=== PATIENT | male | born 1935 | race Caucasian/White ===

== ENCOUNTER 2019-03-07 14:41 | Inpatient (IN) | payer MEDICARE, OTHER, MEDICAID ==
[2019-03-07] MEDS: ASPIRIN 81 MG TAB PO (15:16)
[2019-03-07] MEDS: SODIUM CHLORIDE 0.9% 1L BAG IV* (15:17)
[2019-03-07 15:27] LABS: ADD MAN DIFF? NO
[2019-03-07 15:33] LABS: WHITE BLOOD COUNT 8.7 10^3/ul (4.8-10.8)
[2019-03-07 15:33] LABS: BASOPHILS % 0.5 % (0.0-2.0); EOSINOPHILS # 0.6 10^3/ul (0.0-0.5); EOSINOPHILS % 6.9 % (0.0-7.0); HEMATOCRIT 30.9 % (42.0-52.0); HEMOGLOBIN 9.8 g/dl (14.0-18.0); LYMPHOCYTES # 1.6 10^3/ul (0.8-2.9); LYMPHOCYTES % 18.1 % (15.0-51.0); MEAN CORPUSCULAR HEMOGLOBIN 27.2 pg (29.0-33.0); MEAN CORPUSCULAR HGB CONC 31.7 g/dl (32.0-37.0); MEAN CORPUSCULAR VOLUME 85.8 fl (82.0-101.0); MEAN PLATELET VOLUME 9.9 fl (7.4-10.4); MONOCYTE # 1.1 10^3/ul (0.3-0.9); MONOCYTES % 12.3 % (0.0-11.0); NEUTROPHIL # 5.4 10^3/ul (1.6-7.5); NEUTROPHILS % 61.7 % (39.0-77.0); PLATELET COUNT 207 10^3/UL (140-415); RED CELL DISTRIBUTION WIDTH 14.5 % (11.5-14.5)
[2019-03-07 15:51] LABS: INR 0.97
[2019-03-07 15:52] LABS: PARTIAL THROMBOPLASTIN TIME 34.7 Sec (23.0-35.0)
[2019-03-07 15:58] LABS: ALANINE AMINOTRANSFERASE 16 IU/L (13-69); ALBUMIN 3.4 g/dl (3.3-4.9); ALBUMIN/GLOBULIN RATIO 1.13; ALKALINE PHOSPHATASE 63 IU/L (42-121); ANION GAP 9 (5-13); ASPARTATE AMINO TRANSFERASE 15 IU/L (15-46); BILIRUBIN,INDIRECT 0.2 mg/dl (0-1.1); BILIRUBIN,TOTAL 0.2 mg/dl (0.2-1.3); BLOOD UREA NITROGEN 38 mg/dl (7-20); CALCIUM 9.1 mg/dl (8.4-10.2); CARBON DIOXIDE 23 mmol/L (21-31); CHLORIDE 107 mmol/L (97-110); CREATININE 2.36 mg/dl (0.61-1.24); GLUCOSE 99 mg/dl (70-220); POTASSIUM 4.6 mmol/L (3.5-5.1); SODIUM 139 mmol/L (135-144); TOTAL PROTEIN 6.4 g/dl (6.1-8.1)
[2019-03-07] MEDS: CEFTRIAXONE 1 GM/50 ML (PMX) 50 ML IVPB (16:07)
[2019-03-07 16:08] LABS: TROPONIN-I < 0.012 ng/ml (0.000-0.120)
[2019-03-07] MEDS: ACETAMINOPHEN 325 MG TAB PO (16:24)
[2019-03-07] MEDS: AZITHROMYCIN 500MG/NS (PMX) 250 ML IVPB (16:30)
[2019-03-07] MEDS ORDERED: ONDANSETRON 4 MG INJ IV (16:30)
[2019-03-07] MEDS ORDERED: ACETAMINOPHEN 650 MG SUPP PR (17:30)
[2019-03-07] MEDS ORDERED: NACL 0.9% 3 ML SYG IV (17:30)
[2019-03-07] MEDS ORDERED: BISACODYL (EC) 5 MG TAB PO (17:30)
[2019-03-07] MEDS ORDERED: ACETAMINOPHEN 325 MG TAB PO (17:30)
[2019-03-07] MEDS: SOD CHLORIDE 0.9% 1,000 ML IV (19:04)
[2019-03-07 20:33] LABS: LACTIC ACID 0.6 mmol/L (0.5-2.0)
[2019-03-07 22:11] LABS: CREATINE KINASE 25 IU/L (23-200)
[2019-03-07 22:24] LABS: CK INDEX 2.2; CK-MB 0.54 ng/ml (0.0-2.4); TROPONIN-I < 0.012 ng/ml (0.000-0.120)
[2019-03-08] MEDS ORDERED: GUAIFENESIN/DM 5ML CUP PO (00:30)
[2019-03-08] MEDS: SOD CHLORIDE 0.9% 500 ML IV (00:30)
[2019-03-08] MEDS: SOD CHLORIDE 0.9% 1,000 ML IV ×5 (01:19→18:05)
[2019-03-08 03:52] LABS: CREATINE KINASE 30 IU/L (23-200)
[2019-03-08 04:04] LABS: CK INDEX 2.6; CK-MB 0.79 ng/ml (0.0-2.4); TROPONIN-I 0.018 ng/ml (0.000-0.120)
[2019-03-08] MEDS: ACETAMINOPHEN 325 MG TAB PO (05:17)
[2019-03-08 05:56] LABS: ADD MAN DIFF? NO
[2019-03-08 06:04] LABS: WHITE BLOOD COUNT 8.6 10^3/ul (4.8-10.8)
[2019-03-08 06:04] LABS: BASOPHIL # 0.1 10^3/ul (0.0-0.1); BASOPHILS % 0.7 % (0.0-2.0); EOSINOPHILS # 0.6 10^3/ul (0.0-0.5); EOSINOPHILS % 7.5 % (0.0-7.0); HEMATOCRIT 29.7 % (42.0-52.0); HEMOGLOBIN 9.4 g/dl (14.0-18.0); LYMPHOCYTES # 1.4 10^3/ul (0.8-2.9); MEAN CORPUSCULAR HEMOGLOBIN 27.2 pg (29.0-33.0); MEAN CORPUSCULAR HGB CONC 31.6 g/dl (32.0-37.0); MEAN CORPUSCULAR VOLUME 85.8 fl (82.0-101.0); MEAN PLATELET VOLUME 10.2 fl (7.4-10.4); MONOCYTES % 11.4 % (0.0-11.0); NEUTROPHIL # 5.5 10^3/ul (1.6-7.5); NEUTROPHILS % 63.9 % (39.0-77.0); PLATELET COUNT 185 10^3/UL (140-415); RED BLOOD COUNT 3.46 10^6/ul (4.70-6.10); RED CELL DISTRIBUTION WIDTH 14.6 % (11.5-14.5)
[2019-03-08 06:34] LABS: HEMOGLOBIN A1C 6.2 % (0-5.9)
[2019-03-08 06:36] LABS: TROPONIN-I 0.018 ng/ml (0.000-0.120)
[2019-03-08 06:44] LABS: ALANINE AMINOTRANSFERASE 14 IU/L (13-69); ALBUMIN 2.8 g/dl (3.3-4.9); ALBUMIN/GLOBULIN RATIO 1.07; ALKALINE PHOSPHATASE 56 IU/L (42-121); ANION GAP 4 (5-13); ASPARTATE AMINO TRANSFERASE 13 IU/L (15-46); BILIRUBIN,INDIRECT 0.6 mg/dl (0-1.1); BILIRUBIN,TOTAL 0.6 mg/dl (0.2-1.3); BLOOD UREA NITROGEN 27 mg/dl (7-20); CALCIUM 8.1 mg/dl (8.4-10.2); CARBON DIOXIDE 20 mmol/L (21-31); CHLORIDE 116 mmol/L (97-110); CREATININE 1.52 mg/dl (0.61-1.24); GLUCOSE 93 mg/dl (70-220); MAGNESIUM 1.7 mg/dl (1.7-2.5); PHOSPHORUS 2.9 mg/dl (2.5-4.9); POTASSIUM 4.6 mmol/L (3.5-5.1); SODIUM 140 mmol/L (135-144); TOTAL PROTEIN 5.4 g/dl (6.1-8.1)
[2019-03-08] MEDS: ASPIRIN (EC) 81 MG TAB PO (08:09)
[2019-03-08] MEDS: AZITHROMYCIN 500 MG TAB PO (08:09)
[2019-03-08] MEDS: ENOXAPARIN 30 MG/0.3 ML SYG SC (08:13)
[2019-03-08 10:47] LABS: ADD UMIC NO; UR ASCORBIC ACID NEGATIVE (NEGATIVE); UR BILIRUBIN (Dip) NEGATIVE (NEGATIVE); UR BLOOD (Dip) NEGATIVE (NEGATIVE); UR CLARITY CLEAR (CLEAR); UR COLOR STRAW (YELLOW); UR GLUCOSE (Dip) NEGATIVE (NEGATIVE); UR KETONES (Dip) NEGATIVE (NEGATIVE); UR LEUKOCYTE ESTERASE (Dip) NEGATIVE Leu/ul (NEGATIVE); UR NITRITE (Dip) NEGATIVE (NEGATIVE); UR TOTAL PROTEIN (Dip) NEGATIVE (NEGATIVE); UR UROBILINOGEN (Dip) NEGATIVE (NEGATIVE)
[2019-03-08] MEDS: HYDROCODONE/APAP (5/325) TAB PO (12:24)
[2019-03-08] MEDS: CEFTRIAXONE 1 GM/50 ML (PMX) 50 ML IVPB (15:17)
[2019-03-08 17:09] LABS: ERYTHROCYTE SEDIMENTATION RATE 10 mm/Hr (0-20)
[2019-03-09] MEDS: morphine 2 MG INJ IV ×3 (00:16→20:08)
[2019-03-09] MEDS: SOD CHLORIDE 0.9% 1,000 ML IV ×3 (00:29→11:52)
[2019-03-09] MEDS: NITROGLYCERIN (SL) 0.4 MG TAB SL (00:31)
[2019-03-09 02:51] LABS: TROPONIN-I 0.071 ng/ml (0.000-0.120)
[2019-03-09 06:41] LABS: ADD MAN DIFF? NO
[2019-03-09 06:48] LABS: WHITE BLOOD COUNT 8.4 10^3/ul (4.8-10.8)
[2019-03-09 06:48] LABS: BASOPHIL # 0.1 10^3/ul (0.0-0.1); BASOPHILS % 0.6 % (0.0-2.0); EOSINOPHILS # 0.8 10^3/ul (0.0-0.5); EOSINOPHILS % 9.7 % (0.0-7.0); HEMATOCRIT 31.3 % (42.0-52.0); LYMPHOCYTES # 1.5 10^3/ul (0.8-2.9); MEAN CORPUSCULAR HEMOGLOBIN 27.9 pg (29.0-33.0); MEAN CORPUSCULAR HGB CONC 31.9 g/dl (32.0-37.0); MEAN CORPUSCULAR VOLUME 87.2 fl (82.0-101.0); MEAN PLATELET VOLUME 10.1 fl (7.4-10.4); MONOCYTE # 0.9 10^3/ul (0.3-0.9); MONOCYTES % 10.1 % (0.0-11.0); NEUTROPHIL # 5.2 10^3/ul (1.6-7.5); NEUTROPHILS % 61.4 % (39.0-77.0); PLATELET COUNT 194 10^3/UL (140-415); RED BLOOD COUNT 3.59 10^6/ul (4.70-6.10); RED CELL DISTRIBUTION WIDTH 14.4 % (11.5-14.5)
[2019-03-09 07:17] LABS: ALANINE AMINOTRANSFERASE 16 IU/L (13-69); ALBUMIN 2.8 g/dl (3.3-4.9); ALBUMIN/GLOBULIN RATIO 0.93; ALKALINE PHOSPHATASE 64 IU/L (42-121); ANION GAP 5 (5-13); ASPARTATE AMINO TRANSFERASE 16 IU/L (15-46); BILIRUBIN,INDIRECT 0.2 mg/dl (0-1.1); BILIRUBIN,TOTAL 0.2 mg/dl (0.2-1.3); BLOOD UREA NITROGEN 19 mg/dl (7-20); CALCIUM 8.7 mg/dl (8.4-10.2); CARBON DIOXIDE 21 mmol/L (21-31); CHLORIDE 116 mmol/L (97-110); CREATININE 1.19 mg/dl (0.61-1.24); GLUCOSE 110 mg/dl (70-220); SODIUM 142 mmol/L (135-144); TOTAL PROTEIN 5.8 g/dl (6.1-8.1)
[2019-03-09] MEDS: ASPIRIN (EC) 81 MG TAB PO (08:06)
[2019-03-09] MEDS: AZITHROMYCIN 500 MG TAB PO (08:06)
[2019-03-09] MEDS: ENOXAPARIN 30 MG/0.3 ML SYG SC (08:07)
[2019-03-09 10:08] LABS: TROPONIN-I 0.082 ng/ml (0.000-0.120)
[2019-03-09] MEDS ORDERED: BISACODYL 10 MG SUPP PR (15:00)
[2019-03-09] MEDS: CEFTRIAXONE 1 GM/50 ML (PMX) 50 ML IVPB (15:15)
[2019-03-09] MEDS: POLYETHYLENE GLYCOL 17 GM PACKET PO ×2 (15:43→20:58)
[2019-03-09] MEDS: SENNA/DOCUSATE NA (8.6MG/50MG) TAB PO (15:43)
[2019-03-09 16:58] LABS: TROPONIN-I 0.053 ng/ml (0.000-0.120)
[2019-03-09] MEDS: NAPROXEN 250 MG TAB PO (20:57)
[2019-03-10] MEDS: DOCUSATE SODIUM 100 MG CAP PO ×2 (04:10→08:00)
[2019-03-10] MEDS: PANTOPRAZOLE (EC) 40 MG TAB PO (05:36)
[2019-03-10 06:09] LABS: ADD MAN DIFF? NO
[2019-03-10 06:18] LABS: WHITE BLOOD COUNT 7.5 10^3/ul (4.8-10.8)
[2019-03-10 06:18] LABS: BASOPHILS % 0.5 % (0.0-2.0); EOSINOPHILS # 0.8 10^3/ul (0.0-0.5); EOSINOPHILS % 10.4 % (0.0-7.0); HEMATOCRIT 30.7 % (42.0-52.0); HEMOGLOBIN 9.6 g/dl (14.0-18.0); LYMPHOCYTES # 1.5 10^3/ul (0.8-2.9); MEAN CORPUSCULAR HGB CONC 31.3 g/dl (32.0-37.0); MEAN CORPUSCULAR VOLUME 86.5 fl (82.0-101.0); MEAN PLATELET VOLUME 10.2 fl (7.4-10.4); MONOCYTES % 13.1 % (0.0-11.0); NEUTROPHIL # 4.2 10^3/ul (1.6-7.5); NEUTROPHILS % 55.7 % (39.0-77.0); PLATELET COUNT 191 10^3/UL (140-415); RED BLOOD COUNT 3.55 10^6/ul (4.70-6.10); RED CELL DISTRIBUTION WIDTH 14.7 % (11.5-14.5)
[2019-03-10 06:47] LABS: ANION GAP 6 (5-13); BLOOD UREA NITROGEN 15 mg/dl (7-20); CALCIUM 8.4 mg/dl (8.4-10.2); CARBON DIOXIDE 22 mmol/L (21-31); CHLORIDE 114 mmol/L (97-110); CREATININE 1.08 mg/dl (0.61-1.24); GLUCOSE 104 mg/dl (70-220); POTASSIUM 4.9 mmol/L (3.5-5.1); SODIUM 142 mmol/L (135-144)
[2019-03-10 06:48] LABS: LIPASE 57 U/L (23-300)
[2019-03-10 06:48] LABS: MAGNESIUM 1.8 mg/dl (1.7-2.5)
[2019-03-10 06:50] LABS: TROPONIN-I 0.101 ng/ml (0.000-0.120)
[2019-03-10] MEDS: ASPIRIN (EC) 81 MG TAB PO (08:00)
[2019-03-10] MEDS: AZITHROMYCIN 500 MG TAB PO (08:00)
[2019-03-10] MEDS: BISACODYL (EC) 5 MG TAB PO (08:00)
[2019-03-10] MEDS: NAPROXEN 250 MG TAB PO ×2 (08:00→20:51)
[2019-03-10] MEDS: SENNA/DOCUSATE NA (8.6MG/50MG) TAB PO (08:01)
[2019-03-10] MEDS: POLYETHYLENE GLYCOL 17 GM PACKET PO ×2 (08:01→20:51)
[2019-03-10] MEDS: ENOXAPARIN 30 MG/0.3 ML SYG SC (08:02)
[2019-03-10] MEDS: SOD CHLORIDE 0.9% 1,000 ML IV (08:04)
[2019-03-10] MEDS: morphine 2 MG INJ IV ×2 (08:09→21:57)
[2019-03-10 10:48] LABS: TROPONIN-I 0.078 ng/ml (0.000-0.120)
[2019-03-10] MEDS: CEFTRIAXONE 1 GM/50 ML (PMX) 50 ML IVPB (16:13)
[2019-03-10] MEDS ORDERED: LACTULOSE 30ML CUP PO (16:30)
[2019-03-11] MEDS: morphine 2 MG INJ IV (03:18)
[2019-03-11] MEDS: PANTOPRAZOLE (EC) 40 MG TAB PO (06:05)
[2019-03-11 06:23] LABS: ADD MAN DIFF? NO
[2019-03-11 06:33] LABS: WHITE BLOOD COUNT 7.2 10^3/ul (4.8-10.8)
[2019-03-11 06:33] LABS: BASOPHIL # 0.1 10^3/ul (0.0-0.1); BASOPHILS % 0.7 % (0.0-2.0); EOSINOPHILS # 0.9 10^3/ul (0.0-0.5); EOSINOPHILS % 12.2 % (0.0-7.0); HEMATOCRIT 30.9 % (42.0-52.0); HEMOGLOBIN 9.7 g/dl (14.0-18.0); LYMPHOCYTES # 1.7 10^3/ul (0.8-2.9); MEAN CORPUSCULAR HEMOGLOBIN 27.6 pg (29.0-33.0); MEAN CORPUSCULAR HGB CONC 31.4 g/dl (32.0-37.0); MEAN CORPUSCULAR VOLUME 87.8 fl (82.0-101.0); MEAN PLATELET VOLUME 9.9 fl (7.4-10.4); MONOCYTE # 0.9 10^3/ul (0.3-0.9); NEUTROPHIL # 3.7 10^3/ul (1.6-7.5); NEUTROPHILS % 50.8 % (39.0-77.0); PLATELET COUNT 193 10^3/UL (140-415); RED BLOOD COUNT 3.52 10^6/ul (4.70-6.10); RED CELL DISTRIBUTION WIDTH 14.7 % (11.5-14.5)
[2019-03-11 07:13] LABS: ALANINE AMINOTRANSFERASE 16 IU/L (13-69); ALBUMIN 2.7 g/dl (3.3-4.9); ALKALINE PHOSPHATASE 60 IU/L (42-121); ANION GAP 4 (5-13); ASPARTATE AMINO TRANSFERASE 16 IU/L (15-46); BILIRUBIN,INDIRECT 0.2 mg/dl (0-1.1); BILIRUBIN,TOTAL 0.2 mg/dl (0.2-1.3); BLOOD UREA NITROGEN 14 mg/dl (7-20); CALCIUM 8.8 mg/dl (8.4-10.2); CARBON DIOXIDE 24 mmol/L (21-31); CHLORIDE 114 mmol/L (97-110); CREATININE 1.15 mg/dl (0.61-1.24); GLUCOSE 98 mg/dl (70-220); SODIUM 142 mmol/L (135-144); TOTAL PROTEIN 5.4 g/dl (6.1-8.1)
[2019-03-11] MEDS: NAPROXEN 250 MG TAB PO ×2 (08:02→20:12)
[2019-03-11] MEDS: POLYETHYLENE GLYCOL 17 GM PACKET PO ×2 (08:02→20:12)
[2019-03-11] MEDS: ENOXAPARIN 30 MG/0.3 ML SYG SC (08:02)
[2019-03-11] MEDS: ASPIRIN (EC) 81 MG TAB PO (08:03)
[2019-03-11] MEDS: DOCUSATE SODIUM 100 MG CAP PO (08:03)
[2019-03-11] MEDS: SENNA/DOCUSATE NA (8.6MG/50MG) TAB PO (08:03)
[2019-03-11] MEDS: AZITHROMYCIN 500 MG TAB PO (08:03)
[2019-03-11 12:56] LABS: PROCALCITONIN <0.10 ng/mL (<0.10)
[2019-03-11] MEDS ORDERED: GUAIFENESIN/DM 5ML CUP PO (17:30)
[2019-03-11] MEDS: LIDOCAINE/MYLANTA 40 ML BTL PO ×3 (21:00→21:10)
[2019-03-11] MEDS: BARIUM SULF 2% 450 ML BTL (BERRY SMOOTHIE) PO ×2 (22:33→23:19)
[2019-03-12] MEDS: PANTOPRAZOLE (EC) 40 MG TAB PO (06:02)
[2019-03-12 06:27] LABS: ADD MAN DIFF? NO
[2019-03-12 06:34] LABS: WHITE BLOOD COUNT 7.5 10^3/ul (4.8-10.8)
[2019-03-12 06:34] LABS: BASOPHIL # 0.1 10^3/ul (0.0-0.1); BASOPHILS % 1.1 % (0.0-2.0); HEMATOCRIT 30.7 % (42.0-52.0); HEMOGLOBIN 9.6 g/dl (14.0-18.0); LYMPHOCYTES % 26.5 % (15.0-51.0); MEAN CORPUSCULAR HEMOGLOBIN 26.7 pg (29.0-33.0); MEAN CORPUSCULAR HGB CONC 31.3 g/dl (32.0-37.0); MEAN CORPUSCULAR VOLUME 85.3 fl (82.0-101.0); MEAN PLATELET VOLUME 9.9 fl (7.4-10.4); MONOCYTE # 0.8 10^3/ul (0.3-0.9); MONOCYTES % 10.5 % (0.0-11.0); NEUTROPHIL # 3.7 10^3/ul (1.6-7.5); NEUTROPHILS % 48.6 % (39.0-77.0); PLATELET COUNT 233 10^3/UL (140-415); RED CELL DISTRIBUTION WIDTH 14.7 % (11.5-14.5)
[2019-03-12 06:54] LABS: INR 1.01; PROTIME 13.4 Sec (11.9-14.9)
[2019-03-12 07:08] LABS: ALANINE AMINOTRANSFERASE 26 IU/L (13-69); ALBUMIN 2.7 g/dl (3.3-4.9); ALKALINE PHOSPHATASE 72 IU/L (42-121); ANION GAP 5 (5-13); ASPARTATE AMINO TRANSFERASE 22 IU/L (15-46); BILIRUBIN,INDIRECT 0.2 mg/dl (0-1.1); BILIRUBIN,TOTAL 0.2 mg/dl (0.2-1.3); BLOOD UREA NITROGEN 15 mg/dl (7-20); CALCIUM 9.4 mg/dl (8.4-10.2); CARBON DIOXIDE 25 mmol/L (21-31); CHLORIDE 112 mmol/L (97-110); CREATININE 1.19 mg/dl (0.61-1.24); GLUCOSE 98 mg/dl (70-220); POTASSIUM 5.1 mmol/L (3.5-5.1); SODIUM 142 mmol/L (135-144); TOTAL PROTEIN 5.7 g/dl (6.1-8.1)
[2019-03-12 07:12] LABS: LACTIC ACID 0.8 mmol/L (0.5-2.0)
[2019-03-12 07:15] LABS: LIPASE 117 U/L (23-300)
[2019-03-12] MEDS: NAPROXEN 250 MG TAB PO (08:12)
[2019-03-12] MEDS: POLYETHYLENE GLYCOL 17 GM PACKET PO (08:17)
[2019-03-12] MEDS: ASPIRIN (EC) 81 MG TAB PO (08:17)
[2019-03-12] MEDS: SENNA/DOCUSATE NA (8.6MG/50MG) TAB PO (08:17)
[2019-03-12] MEDS: AZITHROMYCIN 500 MG TAB PO (08:18)
[2019-03-12] MEDS: ENOXAPARIN 30 MG/0.3 ML SYG SC (08:20)
[2019-03-12] MEDS: FUROSEMIDE 40 MG INJ IV (14:04)
[2019-03-12] MEDS ORDERED: FUROSEMIDE 40 MG TAB PO (21:00)
== END 2019-03-12 15:35 | disposition home or self-care (01) | DRG 871 ==
LOC: E/R 14:41 → 6WM 16:17
DX: A41.9 Sepsis, unspecified organism (principal); R65.21 Severe sepsis with septic shock; J18.9 Pneumonia, unspecified organism; N17.0 Acute kidney failure with tubular necrosis; I25.10 Atherosclerotic heart disease of native coronary artery without angina pectoris; I48.0 Paroxysmal atrial fibrillation; D64.9 Anemia, unspecified; I25.2 Old myocardial infarction; R51 Headache; K59.00 Constipation, unspecified; I34.0 Nonrheumatic mitral (valve) insufficiency
CPT/HCPCS: 36415; 70450; 71045; 71250; 74018; 74176; 76705; 76775; 80048; 80053; 81003; 82550; 82553; 83036; 83605; 83690; 83735; 84100; 84145; 84443; 84484; 85025; 85610; 85651; 85730; 87040-91; 87086; 87400; 93005; 93306; 93880; 96374; 97110; 97116; 97161; 97530; 99285-25